=== PATIENT | male | born 1990 | race Caucasian/White ===

== ENCOUNTER 2018-09-25 18:12 | Emergency (ER) | payer SELFPAY ==
[~2018-09-25] VITALS: Ht 175.3 cm; Wt 81.1 kg
[~2018-09-25 18:12] MED LIST: AMOXICILLIN500 MG PO; BACTRIM DS1 TAB PO; CEPHALEXIN500 MG OR; DOXYCYC MONO100 M1 OR; KEFLEX500 M1 PO; KEFLEX500 MG OR; LORTAB5 OR; MUPIROCIN2 % EX; NO MEDS; TORADOL PO; ULTRAM50 M1 PO
[2018-09-25] MEDS ORDERED: AMOXICILLIN500 MG PO (18:49)
[2018-09-25 19:00] VITALS: BP 137/86
== END 2018-09-25 19:00 | disposition home or self-care (01) | DRG 605 ==
LOC: ED 18:12
PROC: 0HQGXZZ Repair Left Hand Skin, External Approach (ICD-10-PCS; principal; 2018-09-25)
DX: S61.217A Laceration without foreign body of left little finger without damage to nail, initial encounter (principal); F17.210 Nicotine dependence, cigarettes, uncomplicated; W45.8XXA Other foreign body or object entering through skin, initial encounter; Y93.89 Activity, other specified

== ENCOUNTER 2019-05-18 | Emergency (ER) | payer SELFPAY ==
[2019-05-18] MEDS ORDERED: MOTRIN800 MG PO (01:02)
[2019-05-18] MEDS ORDERED: TRAMADOL HCL50 MG PO (01:02)
== END 2019-05-18 01:30 | disposition home or self-care (01) | DRG 563 ==
PROC: 2W3CX1Z Immobilization of Right Lower Arm using Splint (ICD-10-PCS; principal; 2019-05-18)
DX: S52.501A Unspecified fracture of the lower end of right radius, initial encounter for closed fracture (principal); S52.611A Displaced fracture of right ulna styloid process, initial encounter for closed fracture; S00.81XA Abrasion of other part of head, initial encounter; F17.210 Nicotine dependence, cigarettes, uncomplicated; Y04.0XXA Assault by unarmed brawl or fight, initial encounter; Y92.89 Other specified places as the place of occurrence of the external cause

== ENCOUNTER 2020-08-04 09:46 | Emergency (ER) | payer SELFPAY ==
[~2020-08-04] VITALS: Ht 177.8 cm; Wt 84.0 kg
[~2020-08-04 09:46] MED LIST changes: +MOTRIN800 MG PO; +TRAMADOL HCL50 MG PO
[2020-08-04] MEDS ORDERED: ZPAK PO (11:15)
[2020-08-04] MEDS ORDERED: TESSALON PERLE100 MG PO (11:15)
[2020-08-04 11:28] VITALS: BP 130/76
== END 2020-08-04 11:28 | disposition home or self-care (01) | DRG 153 ==
LOC: ED 09:46
DX: J06.9 Acute upper respiratory infection, unspecified (principal); H66.92 Otitis media, unspecified, left ear; F17.210 Nicotine dependence, cigarettes, uncomplicated; Z20.822 Contact with and (suspected) exposure to COVID-19

== ENCOUNTER 2023-03-10 11:54 | Emergency (ER) | payer SELFPAY ==
[~2023-03-10] VITALS: Ht 177.8 cm; Wt 78.0 kg
[~2023-03-10 11:54] MED LIST changes: +TESSALON PERLE100 MG PO; +ZPAK PO
[2023-03-10 12:30] VITALS: BP 130/75
[2023-03-10 12:46] VITALS: BP 140/75
[2023-03-10] MEDS ORDERED: MOTRIN800 MG PO (12:55)
[2023-03-10] MEDS ORDERED: AMOXICILLIN500 MG PO (12:55)
[2023-03-10 13:00] VITALS: BP 112/79
== END 2023-03-10 13:02 | disposition home or self-care (01) | DRG 159 ==
LOC: ED 11:54
DX: K04.7 Periapical abscess without sinus (principal)